=== PATIENT | female | born 1945 | race Caucasian/White ===

== ENCOUNTER → 2018-02-15 | Outpatient (CLI) | payer MEDICARE ==
[~2018-02-15] MED LIST: ASPI81 PO; B COTAB3 PO; CITRTAB PO; FEXO180 PO; GINKO BILOBA PO; GLUC500C56 PO; METO25 PO; MONT10TA2 PO; Q VAR INH; RHINSUS; TAB-TAB PO; VITA400C70 PO; VITA500L4 PO
== END ==
LOC: HRSP 08:01
PROVIDERS: ATTEND Internal Medicine
DX: J45.909 Unspecified asthma, uncomplicated (principal)
CPT/HCPCS: 94618; 95012